=== PATIENT | female | born 1945 | race African-American/Black ===

== ENCOUNTER 2016-12-15 07:03 | Outpatient (CLI) | payer OTHER | END 2016-12-15 07:40 | disposition short-term general hospital (02) | LOC: AMB 07:03 | DX: S43.084A Other dislocation of right shoulder joint, initial encounter (principal); W01.0XXA Fall on same level from slipping, tripping and stumbling without subsequent striking against object, initial encounter; Y92.098 Other place in other non-institutional residence as the place of occurrence of the external cause | CPT/HCPCS: A0425; A0427 ==